=== PATIENT | male | born 1950 | race Hispanic/Latino ===

== ENCOUNTER 2018-03-31 09:19 | Emergency (ER) | payer BC, MEDICARE ==
--- NOTE | 2018-03-31 12:17 | RAD ---
FOUR VIEWS LEFT KNEE: DATE: 03/31/2018. COMPARISON: None. HISTORY: Left knee pain for 1 week. No history of injury. FINDINGS: There is moderate medial compartment narrowing with osteophyte formation and subchondral sclerosis. There is mild lateral compartment narrowing with associated chondrocalcinosis and osteophyte formatio n of the lateral femoral condyle. There is moderate patellofemoral joint space narrowing. There is no knee joint effusion, displaced f racture, or evidence of dislocation seen. IMPRESSION: Prominent multicompartment degenerative joint disease with no displaced fracture or dislocation. POS: ARLYN
== END 2018-03-31 10:48 | disposition home or self-care (01) ==
LOC: ERS 09:19
DX: M19.90 Unspecified osteoarthritis, unspecified site (principal); M25.562 Pain in left knee; E11.9 Type 2 diabetes mellitus without complications

== ENCOUNTER 2019-01-16 06:29 | Outpatient (CLI) | payer BC ==
[2019-01-16 10:50] LABS: Bacteria/HPF None Seen HPF (None Seen); Bilirubin Negative (Negative); Blood, Urine Negative (Negative); Clarity Clear (Clear); Glucose, Urine (Dipstick) Normal (Negative); Leukocyte Negative Leu/uL (Negative); Nitrite Negative (Negative); Protein, Urine (Dipstick) 20 mg/dL (Neg-Trace); RBC/HPF 0-3 HPF (0-3); Squamous Epithelial None Seen HPF (0-3); Urobilinogen Normal mg/dL (Less than 2); WBC/HPF 0-3 HPF (0-3)
[2019-01-16 10:57] LABS: INR-International Normal Ratio 1.2
[2019-01-16 11:02] LABS: #Eosinphils 0.2 thou/uL (0.0-0.7); #Lymphocytes 3.2 thou/uL (1.20-3.40); #Monocytes 0.8 thou/uL (0.11-0.59); #Neutrophils 3.7 thou/uL (1.40-6.50); %Basophils 0.6 % (0.0-1.0); %Eosinophils 2.5 % (0.0-10.0); %Lymphocytes 39.7 % (21.0-51.0); %Monocytes 10.2 % (0.0-10.0); Hemoglobin 14.3 g/dL (14.0-18.0); Mean Corpuscular HGB CONC 34.5 g/dL (32.0-36.0); Mean Corpuscular Hemoglobin 31.1 pg (27.0-31.0); Mean Corpuscular Volume 90.1 fL (78.0-98.0); Mean Platelet Volume 8.3 fL (7.4-10.4); Platelet Count 187 thou/uL (130-400); RBC Distribution Width 12.2 % (11.5-14.5); Red Blood Cell (RBC) Count 4.61 mill/uL (4.70-6.10); White Blood Cell (WBC) Count 7.9 thou/uL (4.8-10.8)
[2019-01-16 11:12] LABS: Anion Gap 14 mmol/L (10-20); BUN (Urea Nitrogen) 23 mg/dL (8.4-25.7); Calc. Creatinine Clearance 0 mL/min (70-130); Calcium 9.6 mg/dL (7.8-10.44); Carbon Dioxide 19 mmol/L (23-31); Chloride 106 mmol/L (98-107); Estimated GFR-MDRD 75; Glucose 171 mg/dL (80-115); Potassium 4.2 mmol/L (3.5-5.1); Sodium 135 mmol/L (136-145)
== END 2019-01-16 06:30 | disposition home or self-care (01) ==
LOC: LABBT 06:29
PROVIDERS: ATTEND Orthopaedic Surgery
DX: Z01.818 Encounter for other preprocedural examination (principal); M17.11 Unilateral primary osteoarthritis, right knee
CPT/HCPCS: 80048; 81001; 85025; 85610; 87081; 93005; 93010

== ENCOUNTER 2019-01-16 08:30 | Inpatient (IN) | payer BC, MEDICARE ==
[2019-01-16 09:08] VITALS: BMI 28.1
--- NOTE | 2019-01-17 14:06 | HP ---
HISTORY OF PRESENT ILLNESS: The patient is a 68-year-old male with a long history of progressive degenerative arthritis of both knees, unresponsive to conservative treatment including rest, restriction of activities, anti-inflammatory medication, and previous cortisone injections. He underwent left total knee replacement in June of this year with good results, but continues to have progressive problems with right knee, which is interfering with day-to-day activities including walking, getting dressed, and sleeping. PAST HISTORY: Please see the old chart. The patient has history of hypertension, hyperlipidemia, prostate enlargement, and diabetes. CURRENT MEDICATIONS: Include; 1. Naproxen. 2. MiraLAX. 3. Cymbalta. 4. Glipizide. 5. Lipitor. 6. Metformin. 7. Actos. 8. Avodart. 9. Flomax. 10. Hydrocodone. ALLERGIES: HE IS ALLERGIC TO PENICILLIN. FAMILY HISTORY: Otherwise, unremarkable. SOCIAL HISTORY: Otherwise, unremarkable. REVIEW OF SYSTEMS: Otherwise, unremarkable. PHYSICAL EXAMINATION: GENERAL: Reveals a healthy male. HEENT: Unremarkable. NECK: Supple. CHEST: Clear. HEART: Regular rate and rhythm. ABDOMEN: Soft, nontender. RECTAL: Deferred. GENITAL: Deferred. EXTREMITIES: Pertinent findings related to the right knee, there is puffiness, but no effusion. There is mild varus. There is tenderness and crepitus over the medial joint line. Range of motion is 5 to 100 degrees. There is a right antalgic gait. Pulses are 1+. Neurovascular exam is intact. Good capillary refill. DIAGNOSTIC STUDIES: X-rays of the right knee reveal [id number] collapse medially. IMPRESSION: 1. Degenerative arthritis, right knee. 2. Status post left total knee replacement. 3. History of hypertension. 4. History of diabetes. 5. History of benign prostatic hyperplasia. PLAN: Right total knee replacement. The nature of the surgery, length of recovery, and potential complications such as infection, loss of motion, incomplete relief, delayed wound healing, neurovascular injury, thromboembolic phenomena, and need for revision have been discussed in detail. Job ID: [id number]
[2019-01-20] MEDS ORDERED: Vancomycin 1.5 GRAM/300 ML BAG 1.5 GM in Premix Bag 1 BAG IVPB SCH ×2 (06:15→18:00)
[2019-01-20] MEDS ORDERED: Levofloxacin 500 mg/D5W 100 ml Premix Bag ONE (06:27)
[2019-01-20] MEDS ORDERED: Sodium Chloride 0.9% 100 ML ONE (06:27)
[2019-01-20] MEDS ORDERED: Tranexamic Acid 1,000 MG/10 ML VIAL ONE ×2 (06:27→08:52)
[2019-01-20] MEDS ORDERED: Midazolam HCl 2 mg/2 ml Vial ONE (06:32)
[2019-01-20] MEDS ORDERED: Fentanyl 100 MCG/2 ML VIAL ONE (06:32)
[2019-01-20] MEDS ORDERED: Zolpidem Tartrate 5 MG TAB PO PRN ×2 (07:13→10:36)
[2019-01-20] MEDS ORDERED: traMADol HCl 50 MG TAB PO PRN ×2 (07:13→10:36)
[2019-01-20] MEDS ORDERED: Ropivacaine HCl/PF 250 ML in Premix Bag 1 BAG NERVE BLCK SCH (07:13)
[2019-01-20] MEDS ORDERED: Ondansetron PF 4 MG/2 ML Vial IVP PRN ×2 (07:13→10:36)
[2019-01-20] MEDS ORDERED: Promethazine HCl 25 MG/ML VIAL IM PRN ×3 (07:13→09:09)
[2019-01-20] MEDS ORDERED: Fentanyl 100 MCG/2 ML VIAL IV PRN (07:15)
[2019-01-20] MEDS ORDERED: Bupivacaine 0.25% HCL 30 ML VIAL ONE (08:20)
[2019-01-20] MEDS ORDERED: Tranexamic Acid 1,000 MG in Sodium Chloride 0.9% 100 ML IVPB SCH ×2 (09:00→10:36)
[2019-01-20] MEDS ORDERED: Promethazine HCl 25 MG/ML VIAL SLOW IVP PRN ×3 (09:05→10:36)
[2019-01-20] MEDS ORDERED: Ondansetron HCl/PF 4 MG/2 ML Vial IVP PRN ×2 (09:05→09:09)
[2019-01-20] MEDS ORDERED: EPINEPHrine 1 MG/ML AMP ONE (09:15)
[2019-01-20] MEDS ORDERED: ePHEDrine/0.9% NaCl/PF SYRINGE 50 mg/10 ml ONE (09:15)
[2019-01-20] MEDS ORDERED: Lidocaine 1% PF 5 ML VIAL ONE (09:15)
[2019-01-20] MEDS ORDERED: PROPOFOL 200 MG/20 ML VIAL ONE (09:15)
[2019-01-20] MEDS ORDERED: Ketorolac Tromethamine 30 MG/ML VIAL ONE (09:15)
[2019-01-20] MEDS ORDERED: Ropivacaine 0.5% HCl/PF (150 MG/30 ML VIAL) ONE (09:15)
[2019-01-20] MEDS ORDERED: Ropivacaine 0.2% HCl/PF (40 MG/20 ML VIAL) ONE (09:15)
[2019-01-20] MEDS ORDERED: Ondansetron PF 4 MG/2 ML Vial ONE (09:15)
--- NOTE | 2019-01-20 09:15 | RAD ---
XR Knee Rt 2 View: 01/20/2019 8:56 AM CLINICAL INDICATION: Postoperative right knee COMPARISON: None. FINDINGS: Bones: No acute fracture is demonstrated. Joints: There is been interval placement of the right knee. Prosthesis projects in expected position. There is scattered intra-articular and periarticular soft tissue gas consistent with the patient's recent postoperative state.. Soft Tissue: No acute abnormality.. IMPRESSION: Right total knee replacement.
[2019-01-20] MEDS ORDERED: HYDROcodone/Acetaminophen 10/325 mg Tablet PO PRN ×2 (10:36)
[2019-01-20] MEDS ORDERED: Acetaminophen 325 MG TAB PO PRN (10:36)
[2019-01-20] MEDS ORDERED: Fentanyl 100 MCG/2 ML VIAL SLOW IVP PRN ×2 (10:36)
[2019-01-20] MEDS ORDERED: diphenhydrAMINE 25 MG CAP PO PRN (10:36)
[2019-01-20] MEDS: Ketorolac Tromethamine 30 MG/ML VIAL IVP SCH ×6 (11:28→23:57)
[2019-01-20] MEDS ORDERED: hydrALAZINE 20 MG/ML VIAL SLOW IVP PRN (12:14)
--- NOTE | 2019-01-20 12:39 | CON ---
DATE OF CONSULTATION: PRIMARY CARE PROVIDER: None. CHIEF COMPLAINT: Management of medical comorbidities. HISTORY OF PRESENT ILLNESS: Mr. Rouse is a pleasant 68-year-old gentleman, who was seen at [facility] on January 20, 2019. He had right knee surgery earlier today. Hospitalist Service was consulted for management of medical comorbidities. Mr. Rouse reports that he does not have any medical problems. On further questioning, he reports that he was treated in the past for diabetes mellitus, dyslipidemia, and prostate enlargement. His physician reportedly moved from the area and he stopped taking all medications about a year ago. The patient denies any chest pain, shortness of breath, fevers, or chills. He denies any nausea or vomiting. He denies any abdominal pain. REVIEW OF SYSTEMS: All systems were reviewed and found to be negative. PAST MEDICAL HISTORY: As discussed above. PAST SURGICAL HISTORY: Right knee surgery today. FAMILY HISTORY: No family history of premature coronary artery disease. SOCIAL HISTORY: The patient denies tobacco use, alcohol use, or recreational drug use. ALLERGIES: PENICILLIN. HOME MEDICATIONS: 1. Ibuprofen p.r.n. 2. Tylenol p.r.n. PHYSICAL EXAMINATION: GENERAL: On examination, Mr. Rouse is awake and alert, not in acute distress. VITAL SIGNS: Blood pressure is 131/68, pulse 43, respiratory rate 18, and oxygen saturation 97% on room air. He is afebrile. EYES: No scleral icterus. No conjunctival pallor. ENT: Moist mucosal membranes. No oropharyngeal erythema or exudates. NECK: Supple, nontender. Trachea is midline. RESPIRATORY: Accessory muscles of breathing are not active. Chest wall movements are symmetric bilaterally. Lungs are clear to auscultation without wheeze, rhonchi, or crepitations. CARDIOVASCULAR: S1 and S2 are heard, regular. Peripheral pulses palpable. ABDOMEN: Soft, nontender. Bowel sounds are heard. NEUROLOGIC: Cranial nerves II through XII are intact. MUSCULOSKELETAL: Status post right knee surgery. SKIN: No rashes. LYMPHATIC: No cervical lymphadenopathy. PSYCHIATRIC: Normal mood. Normal affect. The patient is oriented to person, place, and time. DIAGNSOTIC DATA: Mr. Rouse' labs and investigations were reviewed. Yrtor-si-iupr glucose today is 189. On January 16, he had normal white count, normal hemoglobin, normal platelet count. INR 1.2. Mildly decreased sodium of 135, normal potassium of 4.2, and creatinine 0.99. Urinalysis was negative for nitrite and leukocyte esterase. ASSESSMENT AND PLAN: Mr. Rouse is a pleasant 68-year-old gentleman, who was seen at [facility] on January 20, 2019. His problem list includes: 1. Diabetes mellitus: Mr. Rouse reports that he was treated in the past for diabetes mellitus, but has stopped taking his medications approximately a year ago. I will start him on Accu-Cheks with insulin sliding scale. I will also check his hemoglobin A1c. Further management depending on the outcome of the test. 2. Dyslipidemia: The patient is currently not on any medications. He will be advised to seek primary care provider and follow up with them. 3. Benign prostate hypertrophy: The patient appears to be asymptomatic at this time. He will need to establish care with primary care provider after discharge. 4. Hyponatremia: Mild, likely asymptomatic. Many thanks for allowing me to participate in Mr. Rouse' care. Please feel free to contact me with any questions or concerns. LEVEL OF RISK: Moderate. LEVEL OF COMPLEXITY: Moderate. Job ID: [id number]
[2019-01-20] MEDS ORDERED: Aspirin 81 mg Enteric Coated Tablet PO SCH (12:45)
[2019-01-20 12:47] LABS: Hemoglobin A1c 9.2 % (4.0-6.0)
--- NOTE | 2019-01-20 13:59 | OP ---
DATE OF PROCEDURE: 01/20/2019 ENERGY AND CONSERVATION TECHNICIAN: Jennyfer Vann PA-C ANESTHESIA: General plus adductor canal and sciatic nerve blocks. PREOPERATIVE DIAGNOSIS: Degenerative arthritis, right knee. POSTOPERATIVE DIAGNOSIS: Degenerative arthritis, right knee. PROCEDURE PERFORMED: Right total knee replacement with computer-assisted navigation with cemented [place] Triathlon components (#5 femoral component, #6 primary tibial baseplate with 9 mm CS plastic insert, and A35 all-plastic patellar component). DESCRIPTION OF PROCEDURE: After satisfactory anesthesia was induced in supine position, sequential compression devices were placed on the nonoperative leg throughout the procedure. The right leg was then prepped and draped in routine sterile fashion. The right leg was elevated and exsanguinated with an Esmarch bandage and the tourniquet was inflated to 300 mmHg. A gently curved medial parapatellar incision was made carried down through the subcutaneous tissues and bleeding points were controlled with Bovie cautery. Medial parapatellar arthrotomy was performed. Patella was kept laterally and portion of the fat pad were excised for exposure. There was marked degenerative arthritis of the knee, especially medially with large areas of exposed bone. Meniscal remnants and osteophytes were removed. Using the [employer] pinless navigation system and the appropriate guides, the distal femoral and proximal tibial articular surfaces were excised with an oscillating saw to accept the trial components. It was felt that #5 femoral component and #6 primary tibial baseplate with 9 mm CS plastic insert gave appropriate size, fit, and stability. The patellar articular surface was excised to accept an all-plastic A35 patellar component. There was good range of motion and good patellar tracking. The trial components were removed. The knee was copiously irrigated with pulsatile lavage. The bony surfaces were thoroughly cleaned and dried. The permanent components were then cemented in a single stage using one package of cement, premixed with 1 g of tobramycin powder. Excess cement was removed. There was again good fit and stability of the components. The knee was again copiously irrigated. The medial retinaculum and quadriceps mechanism was closed with interrupted #2 Vicryl, running #2 Quill. Subcutaneous tissues were infiltrated with 30 mL of 0.25% Marcaine with epinephrine. Subcutaneous tissues were closed with a running 0 Quill suture. The skin closed with running subcuticular 3-0 Monoderm and SurgiSeal skin adhesive. A sterile bulky compressive dressing was applied and the tourniquet deflated after 69 minutes. The foot promptly pinked up. Sequential compression devices were applied to his operated leg. He was awakened, taken to the recovery room in stable condition. There were no apparent intraoperative complications. The estimated blood loss was less than 100 mL. Job ID: [id number]
[2019-01-20] MEDS: Sodium Chloride 0.9% 1,000 ML IV SCH ×3 (14:54→22:00)
[2019-01-20] MEDS ORDERED: Dextrose 50% Abboject 50 ML SYRINGE SLOW IVP PRN (17:53)
[2019-01-20] MEDS ORDERED: Dextrose 5% in Water 1,000 ML IV PRN (17:53)
[2019-01-20] MEDS: HumaLOG 300 UNITS/3 ML VIAL SC PRN (18:09)
[2019-01-20] MEDS: HYDROcodone/Acetaminophen 10/325 mg Tablet PO PRN (18:24)
[2019-01-20] MEDS: Aspirin 81 mg Enteric Coated Tablet PO SCH (21:14)
[2019-01-21] MEDS: HYDROcodone/Acetaminophen 10/325 mg Tablet PO PRN ×4 (04:03→21:38)
[2019-01-21] MEDS: Ketorolac Tromethamine 30 MG/ML VIAL IVP SCH ×6 (05:19→18:21)
[2019-01-21 05:27] LABS: Mean Corpuscular HGB CONC 34.6 g/dL (32.0-36.0); Mean Corpuscular Hemoglobin 30.9 pg (27.0-31.0); Mean Corpuscular Volume 89.3 fL (78.0-98.0); Mean Platelet Volume 8.3 fL (7.4-10.4); Platelet Count 142 thou/uL (130-400); RBC Distribution Width 11.9 % (11.5-14.5); Red Blood Cell (RBC) Count 3.57 mill/uL (4.70-6.10); White Blood Cell (WBC) Count 8.2 thou/uL (4.8-10.8)
[2019-01-21] MEDS: Sodium Chloride 0.9% 1,000 ML IV SCH ×2 (05:53→18:08)
[2019-01-21] MEDS: traMADol HCl 50 MG TAB PO PRN (06:21)
[2019-01-21] MEDS: Aspirin 81 mg Enteric Coated Tablet PO SCH ×2 (07:53→21:31)
[2019-01-21] MEDS: Multivitamin W/ Minerals 1 TAB PO SCH (07:53)
[2019-01-21] MEDS: Senokot S 8.6-50 MG TAB PO SCH ×2 (07:53→21:31)
--- NOTE | 2019-01-21 08:25 | PRG ---
DATE OF SERVICE: 01/21/2019 SUBJECTIVE: Rashawn is a 68-year-old male postop day 1 from right total knee arthroplasty. He is doing relatively well. He had a little bit of discomfort last night, but otherwise he ambulated 120 feet yesterday. OBJECTIVE: VITAL SIGNS: Temperature 98.9, pulse 68, respiratory rate 16 and nonlabored, blood pressure 124/71. GENERAL: He is alert and oriented to person, place, time, situation, responsive, appropriate with examiner. EXTREMITIES: His incision is clean. No strike through. He is neurovascularly intact in the right lower extremity. LABORATORY DATA: Hemoglobin 11, hematocrit 31.9. IMPRESSION: A 68-year-old male postop day 1 right total knee arthroplasty, doing well. PLAN: Initiate physical therapy and probable discharge to home tomorrow. Job ID: [id number]
[2019-01-21] MEDS ORDERED: FLU VACC TS2019-20(65YR UP)/PF 180 MCG/0.5 ML SYRINGE IM ONE (09:00)
[2019-01-21] MEDS: HumaLOG 300 UNITS/3 ML VIAL SC PRN ×2 (11:44→21:31)
--- NOTE | 2019-01-21 18:07 | PDOC.HOSPP ---
- Subjective Encounter Date: 01/21/19 Encounter Time: 09:00 Subjective: Pt seen for followup re: DM2. Feels well, no complaints. - Objective Vital Signs & Weight: Vital Signs (12 hours) Temp Pulse Resp BP Pulse Ox 01/21/19 15:35 98.3 F 60 18 147/80 H 94 L 01/21/19 11:04 97.1 F L 61 20 117/68 94 L 01/21/19 08:00 94 L 01/21/19 07:48 98.1 F 78 16 127/76 94 L Weight Admit Weight 180 lb Weight 180 lb I&O: 01/20/19 01/21/19 01/22/19 06:59 06:59 06:59 Intake Total 3005 Output Total 1475 Balance 1530 Result Diagrams: 01/21/19 04:49 Additional Labs: Accuchecks 01/21/19 01/21/19 01/21/19 16:00 10:48 05:16 POC Glucose 140 H 217 H 149 H 01/20/19 01/20/19 20:40 18:04 POC Glucose 178 H 283 H Labs and MARs reviewed by sd Hospitalist ROS - Review of Systems Cardiovascular: denies: chest pain, palpitations, orthopnea, paroxysmal noc. dyspnea, edema, light headedness Gastrointestinal: denies: nausea, vomiting, abdominal pain, diarrhea, constipation, melena, hematochezia - Medication Medications: Active Medications Generic Name Dose Route Start Last Admin Trade Name Freq PRN Reason Stop Dose Admin Hydrocodone Bitart/Acetaminophen 1 tab 01/20/19 07:13 01/21/19 04:03 [place] 10/325 PO 1 tab Q4H PRN Administration Pain (1-3) Hydrocodone Bitart/Acetaminophen 2 tab 01/20/19 07:13 01/21/19 16:05 [place] 10/325 PO 2 tab Q4H PRN Administration PAIN (4-6) Aspirin 81 mg 01/20/19 21:00 01/21/19 07:53 Ecotrin PO 81 mg BID FARHAT Administration Ropivacaine 250 ml/ Device 250 mls @ 10 mls/hr 01/20/19 07:13 01/21/19 12:07 NERVE BLCK 01/23/19 07:12 250 mls INF FARHAT Administration Sodium Chloride 1,000 mls @ 100 mls/hr 01/20/19 10:36 01/21/19 05:53 Normal Saline 0.9% IV Not Given .Q10H FARHAT Insulin Human Lispro 0 units 01/20/19 17:53 01/21/19 11:44 Humalog SC 3 unit .MILD SLIDING SCALE PRN Administration Mild Correctional Scale Iron/Minerals/Multivitamins 1 tab 01/21/19 09:00 01/21/19 07:53 Theragran M PO 1 tab DAILY FARHAT Administration Ketorolac Tromethamine 15 mg 01/20/19 12:00 01/21/19 11:42 Toradol IVP 01/22/19 06:01 15 mg Q6HR FARHAT Administration Ketorolac Tromethamine 15 mg 01/20/19 12:00 01/21/19 11:43 Toradol IVP 01/22/19 12:01 Not Given Q6HR FARHAT Senna/Docusate Sodium 2 tab 01/21/19 09:00 01/21/19 07:53 Senokot S PO 2 tab BID FARHAT Administration Sodium Chloride 10 ml 01/20/19 10:36 01/21/19 11:45 Flush - Normal Saline IVF 10 ml PRN PRN Administration Saline Flush Tramadol HCl 50 mg 01/20/19 07:13 01/20/19 21:18 Ultram PO 50 mg Q6H PRN Administration Mild Pain (1-3) Tramadol HCl 100 mg 01/20/19 07:13 01/21/19 06:21 Ultram PO 100 mg Q6H PRN Administration Moderate Pain 4-6 - Exam General Appearance: NAD Eye: anicteric sclera ENT: moist mucosa Neck: supple Heart: murmur present Respiratory: CTAB Gastrointestinal: soft, non-tender Skin: no lesions Neurological: no weakness Psychiatric: normal affect, normal behavior Hosp A/P (1) DM2 (diabetes mellitus, type 2) Status: Chronic (2) HTN (hypertension) Code(s): I10 - ESSENTIAL (PRIMARY) HYPERTENSION Status: Chronic - Plan Continue accuchecks, insulin sliding scale. Monitor vital signs, titrate antihypertensives as needed. Pt educated on the importance of medication compliance.
[2019-01-22] MEDS: Ketorolac Tromethamine 30 MG/ML VIAL IVP SCH ×5 (00:22→10:00)
[2019-01-22] MEDS: traMADol HCl 50 MG TAB PO PRN ×2 (01:23→08:08)
[2019-01-22] MEDS: Sodium Chloride 0.9% 1,000 ML IV SCH ×2 (04:21→10:00)
[2019-01-22] MEDS: HYDROcodone/Acetaminophen 10/325 mg Tablet PO PRN ×2 (06:16→09:52)
[2019-01-22] MEDS: HumaLOG 300 UNITS/3 ML VIAL SC PRN (06:17)
[2019-01-22] MEDS: Senokot S 8.6-50 MG TAB PO SCH (08:08)
[2019-01-22] MEDS: Multivitamin W/ Minerals 1 TAB PO SCH (08:08)
[2019-01-22] MEDS: Aspirin 81 mg Enteric Coated Tablet PO SCH (08:08)
--- NOTE | 2019-01-22 09:24 | DIS ---
DATE OF ADMISSION: 01/20/2019 DATE OF DISCHARGE: 01/22/2019 This is Jennyfer Vann PA-C dictating a report for Almas Menjivar MD. CONSULTANTS: Include [facility]. PREOPERATIVE DIAGNOSIS: Degenerative arthritis, right knee. POSTOPERATIVE DIAGNOSIS: Degenerative arthritis, right knee. PROCEDURES PERFORMED: Right total knee replacement with computer-assisted navigation system with cemented [place] Triathlon components. BRIEF HOSPITAL COURSE: This is a 68-year-old male, who failed outpatient conservative management of right knee osteoarthritis. He was indicated for the above-mentioned procedure. He did well in the operative suite and was then admitted postoperatively to [address], where he worked with physical and occupational therapist. His pain was managed by [facility]. He worked well with Physical and Occupational therapy, and on postoperative day #2, he was in good and stable condition, was discharged home with family. No complications incurred during this hospital stay. DISCHARGE DISPOSITION: Home. DISCHARGE CONDITION: Stable. DISCHARGE INSTRUCTIONS: The patient will follow up with Dr. Menjivar as scheduled. He will also follow up with Physical Therapy as scheduled. He will keep his surgical site clean, dry, and intact until his followup. Job ID: [id number]
[2019-01-22 11:41] VITALS: BP 131/70; TEMP 97.1
== END 2019-01-22 12:14 | disposition home or self-care (01) | DRG 470 ==
LOC: SJJU 01-20 05:32
PROVIDERS: ADMIT Orthopaedic Surgery; ATTEND Orthopaedic Surgery
PROC: 0SRC0J9 Replacement of Right Knee Joint with Synthetic Substitute, Cemented, Open Approach (ICD-10-PCS; principal; 2019-01-20)
PROC: 8E0YXBZ Computer Assisted Procedure of Lower Extremity (ICD-10-PCS; 2019-01-20)
DX: M17.11 Unilateral primary osteoarthritis, right knee (principal); E87.1 Hypo-osmolality and hyponatremia; Z96.652 Presence of left artificial knee joint; I10 Essential (primary) hypertension; E78.5 Hyperlipidemia, unspecified; N40.0 Benign prostatic hyperplasia without lower urinary tract symptoms; E11.9 Type 2 diabetes mellitus without complications; Z79.4 Long term (current) use of insulin; Z79.899 Other long term (current) drug therapy; Z88.0 Allergy status to penicillin
CPT/HCPCS: 36415; 36416; 83036; 85027; 90471; 90662; C1713; C1776; G0008; J0171; J1885; J1956; J2001; J2250; J2405; J2704; J2795; J3010; J3490; S0020

== ENCOUNTER 2019-01-24 14:29 | Emergency (ER) | payer BC, MEDICARE ==
[2019-01-24] MEDS ORDERED: Ondansetron PF 4 MG/2 ML Vial ONE (15:12)
[2019-01-24] MEDS ORDERED: Morphine 4 MG/ML VIAL ONE (15:12)
[2019-01-24 15:25] LABS: #Eosinphils 0.2 thou/uL (0.0-0.7); #Lymphocytes 1.9 thou/uL (1.20-3.40); #Monocytes 0.9 thou/uL (0.11-0.59); #Neutrophils 4.2 thou/uL (1.40-6.50); %Basophils 0.4 % (0.0-1.0); %Eosinophils 2.7 % (0.0-10.0); %Lymphocytes 26.2 % (21.0-51.0); %Monocytes 11.9 % (0.0-10.0); %Neutrophils 58.8 % (42.0-75.0); Hemoglobin 11.2 g/dL (14.0-18.0); Mean Corpuscular HGB CONC 33.9 g/dL (32.0-36.0); Mean Corpuscular Hemoglobin 30.6 pg (27.0-31.0); Mean Corpuscular Volume 90.1 fL (78.0-98.0); Mean Platelet Volume 7.7 fL (7.4-10.4); Platelet Count 216 thou/uL (130-400); RBC Distribution Width 11.9 % (11.5-14.5); Red Blood Cell (RBC) Count 3.65 mill/uL (4.70-6.10); White Blood Cell (WBC) Count 7.1 thou/uL (4.8-10.8)
[2019-01-24 15:48] LABS: ALT (SGPT) 109 U/L (8-55); AST (SGOT) 96 U/L (5-34); Albumin 3.6 g/dL (3.4-4.8); Alkaline Phosphatase 231 U/L (40-110); Anion Gap 11 mmol/L (10-20); BUN (Urea Nitrogen) 19 mg/dL (8.4-25.7); Bilirubin, Total 0.8 mg/dL (0.2-1.2); Calc. Creatinine Clearance 0 mL/min (70-130); Calcium 8.7 mg/dL (7.8-10.44); Carbon Dioxide 25 mmol/L (23-31); Chloride 99 mmol/L (98-107); Estimated GFR-MDRD 73; Globulin 3.2 g/dL (2.4-3.5); Glucose 215 mg/dL (80-115); Potassium 4.9 mmol/L (3.5-5.1); Protein, Total 6.8 g/dL (5.8-8.1); Sodium 130 mmol/L (136-145)
--- NOTE | 2019-01-24 15:48 | ULT ---
RIGHT LOWER EXTREMITY DOPPLER VENOUS ULTRASOUND PROVIDED CLINICAL HISTORY: Right knee surgery 4 days ago with increased edema and pain in the right lower extremity TECHNIQUE: Grayscale and color Doppler sonography with spectral analysis was performed of the right common femor al, femoral, popliteal, posterior tibial, greater saphenous and profunda femoral veins. FINDINGS: There is normal compression, flow and augmentation seen within the deep venous structures o f the right lower extremity. IMPRESSION: No sonographic evidence for right lower extremity deep venous thrombosis.
--- NOTE | 2019-01-24 16:19 | RAD ---
XR Knee Rt 2 View History: Swollen painful knee Comparison: Radiograph January 20, 2019 Findings: Partial resorption of the subcutaneous emphysema. Large joint effusion. No displacement of hardware. Impression: Enlarging joint effusion with resorption of subcutaneous emphysema may reflect a hematoma .
== END 2019-01-24 18:25 | disposition home or self-care (01) ==
LOC: ERS 14:29
DX: M25.561 Pain in right knee (principal); G89.18 Other acute postprocedural pain
CPT/HCPCS: 36415; 80053; 83605; 85025; 85652; 86140; 87040; 96361; 96374; 96375; J2270; J2405